=== PATIENT | male | born 1945 | race Caucasian/White ===

== ENCOUNTER 2018-10-23 07:32 | Emergency (ER) | payer MEDICARE ==
[2018-10-23] MEDS ORDERED: Lidocaine 1% MPF ** 5 ML VIAL INJ ONE (08:15)
[2018-10-23 09:47] VITALS: BP 123/60
--- NOTE | 2018-10-23 11:32 | UC ---
Skin Complaint HPI - HPI Summary HPI Summary: Mr. Kumar tells me he's had a lump on the back of his left shoulder for very long time. It's being evaluated by Dr. Jameson and followed. In the last days to weeks it's gotten much bigger (at least doubling in size) as well as angry and red. It is painful at this time but hasn't in the past. - History of Current Complaint Chief Complaint: UCSkin Time Seen by Provider: 10/23/18 07:54 Stated Complaint: SOFT TISSUE COMPLAINT Hx Obtained From: Patient Onset/Duration: Gradual Onset Skin Exposure Onset/Duration: Days Ago, Weeks Ago Timing: Constant Onset Severity: Mild Current Severity: Moderate Pain Intensity: 7 Pain Scale Used: 0-10 Numeric Location: Other - On his back over his right shoulder blade. Aggravating Factor(s): Wind, Clothing Alleviating Factor(s): Nothing Associated Signs & Symptoms: Positive: Negative - Allergy/Home Medications Allergies/Adverse Reactions: Allergies Allergy/AdvReac Type Severity Reaction Status Date / Time No Known Allergies Allergy Verified 01/16/17 11:14 PMH/Surg Hx/FS Hx/Imm Hx Endocrine History: Diabetes Cardiovascular History: Hypertension - Surgical History Surgical History: Yes Surgery Procedure, Year, and Place: HERNIA, 1980S, - Social History Alcohol Use: Weekly Alcohol Amount: 1-2 Substance Use Type: None Smoking Status (MU): Heavy Every Day Tobacco Smoker Amount Used/How Often: PACK A DAY Have You Smoked in the Last Year: Yes Review of Systems All Other Systems Reviewed And Are Negative: Yes Constitutional: Positive: Negative Skin: Positive: Other - Right posterior shoulder Musculoskeletal: Positive: Negative Physical Exam - Summary Physical Exam Summary: He is nontoxic in appearance with stable vital signs. Triage Information Reviewed: Yes Appearance: Well-Appearing Vital Signs: Initial Vital Signs Temp 96.6 F 10/23/18 07:36 Pulse 80 10/23/18 07:36 Resp 18 10/23/18 07:36 BP 204/100 10/23/18 07:36 Pulse Ox 99 10/23/18 07:36 Neck: Positive: Supple, Nontender Respiratory Exam: Normal Cardiovascular Exam: Normal Skin Exam: Other - He has an approximately 8 x 6 cm mass over his left shoulder blade. It is red and tender more so on the medial aspect where there is some discharge. Diagnostics - Radiology U/S Mass Radiology Interpretation Completed By: Radiologist Summary of Radiographic Findings: The radiologist as identifying a complex mass of unclear etiology. They are recommending contrast enhanced CT scan. Course/Dx - Course Course Of Treatment: The ultrasound did not reveal any clear abscess to drain. He does look infected at this point and I will start him on Keflex. I contacted Dr. Jameson' s office as we are unable to obtain a contrasted CT scan. We will draw his blood so there is a baseline creatinine for the office to order an outpatient CT scan either prior to or after seeing him in the office. - Diagnoses Provider Diagnosis: Mass of chest wall, left Discharge - Sign-Out/Discharge Documenting (check all that apply): Patient Departure All imaging exams completed and their final reports reviewed: Yes - Discharge Plan Condition: Stable Disposition: HOME Prescriptions: Cephalexin CAP* [Keflex CAP*] 500 mg PO QID #40 cap Patient Education Materials: Wound Infection (ED) Referrals: Neville Braxton MD [Primary Care Provider] - - Billing Disposition and Condition Condition: STABLE Disposition: Home
== END 2018-10-23 10:27 | disposition home or self-care (01) ==
LOC: UCEAST 07:32
DX: R22.2 Localized swelling, mass and lump, trunk (principal); F17.210 Nicotine dependence, cigarettes, uncomplicated; E11.9 Type 2 diabetes mellitus without complications; I10 Essential (primary) hypertension
CPT/HCPCS: 76705; 99211; G0463

== ENCOUNTER 2022-06-17 11:35 | Inpatient (IN) ==
[2022-06-17] MEDS ORDERED: Dextrose 50% Syringe 50 ml 25 GM/50 ML SYRINGE IV PUSH PRN (12:09)
[2022-06-17 12:47] LABS: Urine Appearance Clear; Urine Bilirubin Negative (Negative); Urine Blood 3+ (Negative); Urine Color Yellow; Urine Glucose Negative (Negative); Urine Ketones Negative (Negative); Urine Nitrite Negative (Negative); Urine Protein Negative (Negative); Urine Specific Gravity 1.015 (1.002-1.030); Urine Urobilinogen Negative (Negative)
[2022-06-17 12:48] LABS: Urine Bacteria Absent (Absent); Urine Red Blood Cell 3+(>10/hpf) (Absent); Urine White Blood Cell Trace(0-5/hpf) (Absent)
[2022-06-17] MEDS ORDERED: NS 0.45% 1000 ml BAG 1,000 ML IV SCH ×3 (13:00→16:42)
[2022-06-17 14:06] LABS: Hematocrit 21 % (42-52)
[2022-06-17] MEDS: Polyethylene Glycol 3350 17 GM PACKET PO PRN (14:27)
[2022-06-17 14:42] LABS: Calcium 8.3 mg/dL (8.6-10.3); Creatinine, Serum 6.42 mg/dL (0.67-1.17); Magnesium 1.8 mg/dL (1.9-2.7); eGFR CKD-EPI 8.3 (>60)
[2022-06-17 14:43] LABS: Potassium 5.1 mmol/L (3.5-5.0)
[2022-06-17] MEDS: Nicotine PATCH 14 MG/24 HR PATCH TRANSDERM SCH (18:05)
[2022-06-17] MEDS: HYDROcodone/ACETAMIN 5/325 mg TAB PO PRN (21:50)
[2022-06-18] MEDS: cefTRIAXone 1 gm/50 mL D5W 1 GM/50 ML BAG IV SCH ×2 (00:08→22:48)
[2022-06-18] MEDS: Azithromycin 500 mg/250 ml NS 500 MG/250 ML BAG IVPB SCH ×2 (01:17→23:56)
[2022-06-18 05:19] LABS: Urine Appearance Cloudy; Urine Bilirubin Negative (Negative); Urine Blood 3+ (Negative); Urine Color Yellow; Urine Glucose Negative (Negative); Urine Ketones Trace (Negative); Urine Nitrite Negative (Negative); Urine Protein 1+(30 mg/dL) (Negative); Urine Specific Gravity 1.016 (1.002-1.030); Urine Urobilinogen Negative (Negative)
[2022-06-18 05:39] LABS: Urine Bacteria Absent (Absent); Urine Red Blood Cell 3+(>10/hpf) (Absent); Urine Squamous Epithelial Cell Present (Absent); Urine White Blood Cell 1+(6-10/hpf) (Absent)
[2022-06-18] MEDS: HYDROcodone/ACETAMIN 5/325 mg TAB PO PRN ×4 (06:07→22:47)
[2022-06-18 06:28] LABS: ABS Basophils 0.1 10^3/ul (0-0.2); ABS Lymphocytes 1.1 10^3/ul (1.0-4.8); ABS Monocytes 0.9 10^3/ul (0-0.8); ABS Neutrophils 7.1 10^3/ul (1.5-7.7); Eosinophil % 0.1 %; Hematocrit 23 % (42-52); Hemoglobin 7.8 g/dL (14.0-18.0); Lymphocyte % 11.5 %; Mean Corpuscular HGB Conc 34 g/dL (31-36); Mean Corpuscular Hemoglobin 31 pg (27-31); Mean Corpuscular Volume 93 fL (80-94); Mean Platelet Volume 7.6 fL (7.4-10.4); Nucleated Red Blood Cells % 0.2; Platelet Count 265 10^3/uL (150-450); Red Blood Count 2.49 10^6 /uL (4.18-5.48); Red Cell Distribution Width 15 % (10-15); White Blood Count 9.2 10^3/uL (3.5-10.8)
[2022-06-18 06:37] LABS: Calcium 8.4 mg/dL (8.6-10.3); Creatinine, Serum 2.64 mg/dL (0.67-1.17); Potassium 4.9 mmol/L (3.5-5.0)
[2022-06-18] MEDS: Nicotine PATCH 14 MG/24 HR PATCH TRANSDERM SCH (08:37)
[2022-06-18] MEDS ORDERED: Nicotine PATCH 14 MG/24 HR PATCH TRANSDERM SCH (09:00)
[2022-06-18] MEDS ORDERED: Enoxaparin 30 MG/0.3 ML SYR SUBCUT SCH (15:00)
[2022-06-18] MEDS: Polyethylene Glycol 3350 17 GM PACKET PO PRN (17:19)
[2022-06-19 06:51] LABS: ABS Eosinophils 0.1 10^3/ul (0-0.6); ABS Lymphocytes 1.3 10^3/ul (1.0-4.8); ABS Monocytes 0.7 10^3/ul (0-0.8); ABS Neutrophils 4.8 10^3/ul (1.5-7.7); Eosinophil % 0.8 %; Hematocrit 19 % (42-52); Hemoglobin 6.2 g/dL (14.0-18.0); Lymphocyte % 18.3 %; Mean Corpuscular HGB Conc 33 g/dL (31-36); Mean Corpuscular Hemoglobin 30 pg (27-31); Mean Corpuscular Volume 91 fL (80-94); Mean Platelet Volume 7.1 fL (7.4-10.4); Nucleated Red Blood Cells % 0.3; Platelet Count 253 10^3/uL (150-450); Red Blood Count 2.06 10^6 /uL (4.18-5.48); Red Cell Distribution Width 15 % (10-15); White Blood Count 6.9 10^3/uL (3.5-10.8)
[2022-06-19 07:31] LABS: Creatinine, Serum 1.24 mg/dL (0.67-1.17); Magnesium 1.8 mg/dL (1.9-2.7); Potassium 4.4 mmol/L (3.5-5.0); eGFR CKD-EPI 59.5 (>60)
[2022-06-19] MEDS ORDERED: Magnesium Sulfate 2 gm BAG 2 GM/50 ML BAG IVPB ONE (08:42)
[2022-06-19] MEDS: Nicotine PATCH 14 MG/24 HR PATCH TRANSDERM SCH (09:24)
[2022-06-19 09:33] LABS: Ferritin 570.5 ng/mL (24-336)
[2022-06-19] MEDS: HYDROcodone/ACETAMIN 5/325 mg TAB PO PRN ×2 (09:36→15:00)
[2022-06-19 16:14] LABS: Hematocrit 21 % (42-52); Hematocrit for Retic CNT 21 % (42-52); Hemoglobin 6.8 g/dL (14.0-18.0); Immature Retic Fraction 0.62; RBC Retic Count 2.26 10^6/uL (4.18-5.48)
[2022-06-19] MEDS: Polyethylene Glycol 3350 17 GM PACKET PO PRN (21:41)
[2022-06-19] MEDS: cefTRIAXone 1 gm/50 mL D5W 1 GM/50 ML BAG IV SCH (22:50)
[2022-06-19] MEDS: Azithromycin 500 mg/250 ml NS 500 MG/250 ML BAG IVPB SCH (23:39)
[2022-06-19 23:44] LABS: Hematocrit 22 % (42-52); Hemoglobin 7.2 g/dL (14.0-18.0); Mean Corpuscular HGB Conc 33 g/dL (31-36); Mean Corpuscular Hemoglobin 30 pg (27-31); Mean Corpuscular Volume 90 fL (80-94); Mean Platelet Volume 7.8 fL (7.4-10.4); Platelet Count 266 10^3/uL (150-450); Red Blood Count 2.45 10^6 /uL (4.18-5.48); Red Cell Distribution Width 15 % (10-15); White Blood Count 8.6 10^3/uL (3.5-10.8)
[2022-06-20] MEDS: HYDROcodone/ACETAMIN 5/325 mg TAB PO PRN ×3 (03:54→17:07)
[2022-06-20 06:22] LABS: ABS Basophils 0.1 10^3/ul (0-0.2); ABS Eosinophils 0.1 10^3/ul (0-0.6); ABS Lymphocytes 1.3 10^3/ul (1.0-4.8); ABS Monocytes 0.7 10^3/ul (0-0.8); ABS Neutrophils 5.8 10^3/ul (1.5-7.7); Eosinophil % 0.8 %; Hematocrit 21 % (42-52); Hemoglobin 6.8 g/dL (14.0-18.0); Lymphocyte % 16.2 %; Mean Corpuscular HGB Conc 33 g/dL (31-36); Mean Corpuscular Hemoglobin 31 pg (27-31); Mean Corpuscular Volume 92 fL (80-94); Mean Platelet Volume 7.7 fL (7.4-10.4); Nucleated Red Blood Cells % 0.1; Platelet Count 259 10^3/uL (150-450); Red Blood Count 2.24 10^6 /uL (4.18-5.48); Red Cell Distribution Width 15 % (10-15); White Blood Count 7.9 10^3/uL (3.5-10.8)
[2022-06-20 06:36] LABS: Creatinine, Serum 1.11 mg/dL (0.67-1.17); Potassium 4.4 mmol/L (3.5-5.0)
[2022-06-20] MEDS ORDERED: Senna TAB 8.6 mg TAB PO ONE (08:30)
[2022-06-20] MEDS: Nicotine PATCH 14 MG/24 HR PATCH TRANSDERM SCH (09:36)
[2022-06-20] MEDS: Polyethylene Glycol 3350 17 GM PACKET PO SCH ×2 (09:45→21:35)
[2022-06-20] MEDS ORDERED: ERYTHROMYCIN LACTOBIONATE IVPB ONE (16:10)
[2022-06-20] MEDS ORDERED: NS 0.9% IVPB ONE (16:10)
[2022-06-20] MEDS ORDERED: Succinylcholine 200 mg VIAL 20 mg/ml 10 ml VIAL (200 mg) ONE (17:44)
[2022-06-20] MEDS ORDERED: Ondansetron 4 mg VIAL 2 MG/ML 2 ml VIAL ONE (17:44)
[2022-06-20] MEDS ORDERED: Propofol 10 MG/ML 20 ML BTL ONE (17:44)
[2022-06-20] MEDS ORDERED: Lidocaine 2% PF 5 ML VIAL ONE (17:44)
[2022-06-20 18:11] LABS: Hematocrit 24 % (42-52); Hemoglobin 7.8 g/dL (14.0-18.0)
[2022-06-20] MEDS ORDERED: fentaNYL 100 mcg/2 ml 50 MCG/ML VIAL IV PRN (18:35)
[2022-06-20] MEDS ORDERED: Ondansetron 4 mg VIAL 2 MG/ML 2 ml VIAL IV PRN (18:35)
[2022-06-20] MEDS ORDERED: Naloxone 0.4 mg VIAL 0.4 mg/ml 1 ml VIAL IV PRN (18:35)
[2022-06-20] MEDS: Pantoprazole VIAL 40 MG VIAL IV SCH (21:35)
[2022-06-20] MEDS: cefTRIAXone 1 gm/50 mL D5W 1 GM/50 ML BAG IV SCH (22:44)
[2022-06-21 00:07] LABS: Hematocrit 24 % (42-52); Hemoglobin 7.6 g/dL (14.0-18.0); Mean Corpuscular HGB Conc 32 g/dL (31-36); Mean Corpuscular Hemoglobin 30 pg (27-31); Mean Corpuscular Volume 95 fL (80-94); Mean Platelet Volume 7.7 fL (7.4-10.4); Platelet Count 272 10^3/uL (150-450); Red Blood Count 2.55 10^6 /uL (4.18-5.48); Red Cell Distribution Width 16 % (10-15)
[2022-06-21 06:52] LABS: ABS Eosinophils 0.1 10^3/ul (0-0.6); ABS Lymphocytes 0.8 10^3/ul (1.0-4.8); ABS Monocytes 0.6 10^3/ul (0-0.8); ABS Neutrophils 7.5 10^3/ul (1.5-7.7); Eosinophil % 0.6 %; Hematocrit 25 % (42-52); Hemoglobin 8.4 g/dL (14.0-18.0); Lymphocyte % 9.3 %; Mean Corpuscular HGB Conc 33 g/dL (31-36); Mean Corpuscular Hemoglobin 31 pg (27-31); Mean Corpuscular Volume 93 fL (80-94); Mean Platelet Volume 7.6 fL (7.4-10.4); Platelet Count 284 10^3/uL (150-450); Red Blood Count 2.69 10^6 /uL (4.18-5.48); Red Cell Distribution Width 15 % (10-15)
[2022-06-21 07:42] LABS: Calcium 8.1 mg/dL (8.6-10.3); Creatinine, Serum 0.99 mg/dL (0.67-1.17); Magnesium 1.7 mg/dL (1.9-2.7); Potassium 4.2 mmol/L (3.5-5.0)
[2022-06-21] MEDS: HYDROcodone/ACETAMIN 5/325 mg TAB PO PRN ×3 (09:30→22:51)
[2022-06-21] MEDS: Polyethylene Glycol 3350 17 GM PACKET PO SCH ×2 (09:30→22:00)
[2022-06-21] MEDS: Pantoprazole VIAL 40 MG VIAL IV SCH ×2 (09:32→22:00)
[2022-06-21] MEDS: Nicotine PATCH 14 MG/24 HR PATCH TRANSDERM SCH (09:33)
[2022-06-21 12:31] LABS: Hematocrit 26 % (42-52); Hemoglobin 8.5 g/dL (14.0-18.0); Mean Corpuscular HGB Conc 33 g/dL (31-36); Mean Corpuscular Hemoglobin 30 pg (27-31); Mean Corpuscular Volume 91 fL (80-94); Mean Platelet Volume 7.6 fL (7.4-10.4); Platelet Count 302 10^3/uL (150-450); Red Blood Count 2.83 10^6 /uL (4.18-5.48); Red Cell Distribution Width 15 % (10-15); White Blood Count 8.7 10^3/uL (3.5-10.8)
[2022-06-21] MEDS ORDERED: Iohexol 300 (CONTRAST) 10 ML SDV IV ONE (12:38)
[2022-06-21] MEDS: Enoxaparin 40 MG/0.4 ML SYR SUBCUT SCH (18:44)
[2022-06-21] MEDS: cefTRIAXone 1 gm/50 mL D5W 1 GM/50 ML BAG IV SCH (22:04)
[2022-06-22 08:31] LABS: ABS Basophils 0.1 10^3/ul (0-0.2); ABS Eosinophils 0.1 10^3/ul (0-0.6); ABS Lymphocytes 0.9 10^3/ul (1.0-4.8); ABS Monocytes 0.4 10^3/ul (0-0.8); ABS Neutrophils 5.8 10^3/ul (1.5-7.7); Eosinophil % 0.8 %; Hematocrit 26 % (42-52); Hemoglobin 8.6 g/dL (14.0-18.0); Lymphocyte % 12.2 %; Mean Corpuscular HGB Conc 33 g/dL (31-36); Mean Corpuscular Hemoglobin 31 pg (27-31); Mean Corpuscular Volume 93 fL (80-94); Mean Platelet Volume 7.6 fL (7.4-10.4); Nucleated Red Blood Cells % 0.1; Platelet Count 289 10^3/uL (150-450); Red Blood Count 2.77 10^6 /uL (4.18-5.48); Red Cell Distribution Width 16 % (10-15); White Blood Count 7.2 10^3/uL (3.5-10.8)
[2022-06-22 08:50] LABS: Calcium 8.4 mg/dL (8.6-10.3); Creatinine, Serum 0.98 mg/dL (0.67-1.17); Magnesium 1.8 mg/dL (1.9-2.7); Potassium 4.4 mmol/L (3.5-5.0); eGFR CKD-EPI 78.9 (>60)
[2022-06-22] MEDS: Pantoprazole VIAL 40 MG VIAL IV SCH ×2 (09:03→21:33)
[2022-06-22] MEDS: Polyethylene Glycol 3350 17 GM PACKET PO SCH ×2 (09:06→21:46)
[2022-06-22] MEDS: HYDROcodone/ACETAMIN 5/325 mg TAB PO PRN ×2 (09:06→21:30)
[2022-06-22] MEDS: Nicotine PATCH 14 MG/24 HR PATCH TRANSDERM SCH (09:08)
[2022-06-22] MEDS: Enoxaparin 40 MG/0.4 ML SYR SUBCUT SCH (17:22)
[2022-06-22] MEDS ORDERED: Magnesium Sulfate 2 gm BAG 2 GM/50 ML BAG IVPB ONE (19:19)
[2022-06-22] MEDS ORDERED: cefTRIAXone 1 gm/50 mL D5W 1 GM/50 ML BAG IV ONE (22:00)
[2022-06-23 07:41] LABS: Calcium 8.1 mg/dL (8.6-10.3); Creatinine, Serum 0.94 mg/dL (0.67-1.17); Magnesium 1.9 mg/dL (1.9-2.7); Potassium 4.1 mmol/L (3.5-5.0)
[2022-06-23] MEDS: Pantoprazole VIAL 40 MG VIAL IV SCH (10:18)
[2022-06-23] MEDS: Nicotine PATCH 14 MG/24 HR PATCH TRANSDERM SCH (10:20)
[2022-06-23] MEDS: HYDROcodone/ACETAMIN 5/325 mg TAB PO PRN (10:20)
[2022-06-23] MEDS: Polyethylene Glycol 3350 17 GM PACKET PO SCH (10:21)
[2022-06-23 11:18] VITALS: BP 131/57
[2022-06-23 13:13] LABS: Hematocrit 28 % (42-52); Hemoglobin 9.1 g/dL (14.0-18.0)
== END 2022-06-23 12:18 | DRG 682 ==
LOC: SUATTDRO 11:38 → MEDTELE 11:38
PROVIDERS: ADMIT Internal Medicine; ATTEND Internal Medicine
PROC: O.GIEGD (2022-06-20 16:55)